=== PATIENT | female | born 1980 | race Caucasian/White ===

== ENCOUNTER 2016-09-16 06:23 | Inpatient (IN) | payer OTHER ==
[~2016-09-16] VITALS: Ht 154.9 cm; Wt 65.0 kg
[2016-09-16] VITALS (22 sets, daily range): BP systolic 90–134; BP diastolic 55–93
[2016-09-16] MEDS ORDERED: PRENTAB9 PO (06:26)
[2016-09-16] MEDS: miSOPROStol 50 MCG 1/2 TAB (S0191) PO SCH ×3 (08:16→16:26)
[2016-09-16 08:31] LABS: BASO % 0.2 % (0.0-1.0); EOS # 0.1 K/mm3 (0.0-0.50); EOS % 1.2 % (0.0-3.0); LARGE UNSTAINED CELL # 0.1 K/mm3 (0.0-0.4); LARGE UNSTAINED CELL % 1.6 % (0.0-4.0); LYMPH # 1.9 K/mm3 (1.5-4.5); LYMPH % 26.7 % (24.0-44.0); MEAN CORPUSCULAR HEMOGLOBIN 32.6 pg (27.0-33.0); MEAN CORPUSCULAR VOLUME 89.1 fl (80.0-96.0); MONO # 0.3 K/mm3 (0.0-0.8); NEUTROPHILS # 4.4 K/mm3 (1.8-7.7); NEUTROPHILS % 65.3 % (36.0-66.0); PLATELET COUNT, AUTOMATED 137 k/mm3 (150-450); WHITE BLOOD COUNT 6.8 K/mm3 (4.0-10.0)
[2016-09-16 08:40] LABS: MEAN CORPUSCULAR HGB CONC 36.6 g/dl (32.0-36.5)
[2016-09-16] MEDS ORDERED: FENTANYL 2MCG/ML ROPIVACAINE 0.2% NACL 250 ML CADD As Ordered ONE (19:44)
[2016-09-16] MEDS ORDERED: REFRIGERATOR IV KEYS XX PRN (21:30)
[2016-09-16] MEDS ORDERED: ePHEDrine SULFATE 25 MG/5 ML(5MG/ML) SYRINGE IV PRN (21:30)
[2016-09-16] MEDS ORDERED: EPIDURAL COMMENT XX SCH (21:30)
[2016-09-16] MEDS ORDERED: LACTATED RINGER'S 1000 ML IV PRN (21:30)
[2016-09-16] MEDS ORDERED: ONDANSETRON 4MG/2ML VIAL (J2405) IV PRN (21:30)
[2016-09-16] MEDS ORDERED: EPIDURAL/PCA KEYS XX PRN (21:30)
[2016-09-16] MEDS ORDERED: NALOXONE INJ 0.4 MG/1 ML VIAL (J2310) IV PRN (21:30)
[2016-09-16] MEDS ORDERED: diphenhydrAMINE INJ 50MG/ML VIAL (J1200) IV PRN (21:30)
[2016-09-16] MEDS ORDERED: FENTANYL/ROPIVACAINE/NACL CADD 250 ML EPIDURAL SCH (21:30)
[2016-09-17] VITALS (22 sets, daily range): BP systolic 82–120; BP diastolic 50–74
[2016-09-17] MEDS ORDERED: OXYTOCIN DRIP 30 UNITS in APPROPRIATE DILUENT 1 EA IV SCH (03:21)
[2016-09-17] MEDS ORDERED: MOM 30ML SUSPENSION UDC PO PRN (03:30)
[2016-09-17] MEDS ORDERED: ANUSOL HC CREAM 30GM TOP PRN (03:30)
[2016-09-17] MEDS ORDERED: DIBUCAINE 1% OINTMENT 30GM TOP PRN (03:30)
[2016-09-17] MEDS ORDERED: MEASLES,MUMPS,RUBELLA VACCINE INJ (MMR-II) (90707) SC SCH (03:30)
[2016-09-17] MEDS ORDERED: METHYLERGONOVINE MALEATE 0.2 MG TAB PO PRN (03:30)
[2016-09-17] MEDS ORDERED: RHOGAM 300 MCG (1500 IU) INJ (J2790) IM SCH (03:30)
[2016-09-17] MEDS ORDERED: DOCUSATE SODIUM 100 MG CAP PO PRN (03:30)
[2016-09-17] MEDS ORDERED: OXYTOCIN INJ 10 UNITS/ML VIAL (J2590) IV ONE (03:30)
[2016-09-17] MEDS ORDERED: IBUPROFEN 800 MG TAB PO PRN (03:30)
[2016-09-17] MEDS: ACETAMINOPHEN 500 MG TAB PO PRN ×2 (05:47→12:03)
[2016-09-17] MEDS: PRENATAL VITAMIN TAB PO SCH (07:48)
[2016-09-18 06:00] VITALS: BP 129/80
[2016-09-18 07:04] LABS: MEAN CORPUSCULAR HEMOGLOBIN 32.6 pg (27.0-33.0); MEAN CORPUSCULAR HGB CONC 36.1 g/dl (32.0-36.5); MEAN CORPUSCULAR VOLUME 90.2 fl (80.0-96.0); RED CELL DISTRIBUTION WIDTH 12.9 % (11.5-14.5); WHITE BLOOD COUNT 6.9 K/mm3 (4.0-10.0)
[2016-09-18] MEDS: PRENATAL VITAMIN TAB PO SCH (08:35)
[2016-09-18] MEDS ORDERED: ACET50TA PO (08:48)
[2016-09-18] MEDS ORDERED: IBUP-1114 PO (08:48)
[2016-09-18] MEDS ORDERED: COLA100C PO (08:48)
== END 2016-09-18 12:10 | disposition home or self-care (01) | DRG 775 ==
LOC: M LDI 06:23 → M OBS 09-17 05:14
PROVIDERS: ADMIT Obstetrics & Gynecology; ATTEND Obstetrics & Gynecology
PROC: 3E0DXGC Introduction of Other Therapeutic Substance into Mouth and Pharynx, External Approach (ICD-10-PCS; 2016-09-16)
PROC: 10E0XZZ Delivery of Products of Conception, External Approach (ICD-10-PCS; principal; 2016-09-17)
DX: O99.13 Other diseases of the blood and blood-forming organs and certain disorders involving the immune mechanism complicating the puerperium (principal); Z37.0 Single live birth; Z3A.39 39 weeks gestation of pregnancy; O09.513 Supervision of elderly primigravida, third trimester; D69.6 Thrombocytopenia, unspecified

== ENCOUNTER 2018-03-02 07:00 | Emergency (ER) | payer OTHER ==
[2018-03-02 08:11] LABS: BASO % 0.5 % (0.0-1.0); EOS % 0.5 % (0.0-3.0); HEMATOCRIT 41.3 % (36.0-47.0); HEMOGLOBIN 14.7 g/dl (12.0-15.5); IMMATURE GRANULOCYTE % 0.2 % (0-3.0); LYMPH # 0.9 10^3/uL (1.5-4.5); LYMPH % 22.7 % (24.0-44.0); MEAN CORPUSCULAR HEMOGLOBIN 32.1 pg (27.0-33.0); MEAN CORPUSCULAR HGB CONC 35.6 g/dl (32.0-36.5); MEAN CORPUSCULAR VOLUME 90.2 fl (80.0-96.0); MONO # 0.3 10^3/uL (0.0-0.8); MONO % 8.1 % (0.0-5.0); NEUTROPHILS # 2.8 10^3/uL (1.8-7.7); PLATELET COUNT, AUTOMATED 114 10^3/uL (150-450); RED BLOOD COUNT 4.58 10^6/uL (4.00-5.40); RED CELL DISTRIBUTION WIDTH 11.8 % (11.5-14.5); WHITE BLOOD COUNT 4.1 10^3/uL (4.0-10.0)
[2018-03-02] MEDS: OXAZEPAM 15 MG CAP PO (08:12)
[2018-03-02] MEDS: NS 1,000 ML IV (08:12)
[2018-03-02] MEDS: ONDANSETRON 4MG/2ML VIAL (J2405) IV (08:12)
[2018-03-02 08:31] LABS: INR 0.93; PARTIAL THROMBOPLASTIN TIME 25.3 SECONDS (25.4-37.6); PROTHROMBIN TIME 12.6 SECONDS (12.1-14.4)
[2018-03-02 08:35] LABS: ALBUMIN/GLOBULIN RATIO 1.25 (1.00-1.93); ALKALINE PHOSPHATASE 73 U/L (45-117); ALT/SGPT 26 U/L (12-78); ANION GAP 10 MEQ/L (8-16); AST/SGOT 32 U/L (7-37); BILIRUBIN,DIRECT 0.5 MG/DL (0.0-0.2); BILIRUBIN,TOTAL 2.7 MG/DL (0.2-1.0); BLOOD UREA NITROGEN 9 MG/DL (7-18); CALCIUM LEVEL 8.2 MG/DL (8.5-10.1); CARBON DIOXIDE LEVEL 25 MEQ/L (21-32); CHLORIDE LEVEL 106 MEQ/L (98-107); CK-MB VALUE MASS 1.2 NG/ML (<3.6); CPK CREATINE PHOSPHOKINASE 99 U/L (26-192); CREATININE FOR GFR 0.62 MG/DL (0.55-1.30); GLOMERULAR FILTRATION RATE > 60.0 (>60); GLUCOSE, FASTING 83 MG/DL (70-100); LIPASE 142 U/L (73-393); MB/CK RELATIVE INDEX 1.21 (< OR =4); POTASSIUM SERUM 3.8 MEQ/L (3.5-5.1); SODIUM LEVEL 141 MEQ/L (136-145); TOTAL PROTEIN 7.2 GM/DL (6.4-8.2); TROPONIN I < 0.02 NG/ML (< 0.10)
== END 2018-03-02 10:05 | disposition home or self-care (01) ==
LOC: M ED 07:00
DX: F10.239 Alcohol dependence with withdrawal, unspecified (principal); F17.210 Nicotine dependence, cigarettes, uncomplicated
CPT/HCPCS: J2405

== ENCOUNTER 2018-11-01 08:08 | Emergency (ER) | payer OTHER ==
[~2018-11-01] VITALS: Ht 154.9 cm; Wt 51.2 kg
[~2018-11-01 08:08] MED LIST: COLA100C5 PO; IBUP-1114 PO; MAPA500T2 PO; OXAZ30CA2 PO; PRENTAB9 PO; ZOFR4TAB14 PO
[2018-11-01] MEDS ORDERED: NS 1,000 ML IV ONE ×2 (09:00→11:00)
[2018-11-01 09:24] LABS: BASO % 0.5 % (0.0-1.0); EOS % 0.5 % (0.0-3.0); HEMATOCRIT 41.2 % (36.0-47.0); HEMOGLOBIN 14.9 g/dl (12.0-15.5); LYMPH # 1.1 10^3/uL (1.5-4.5); LYMPH % 25.8 % (24.0-44.0); MEAN CORPUSCULAR HEMOGLOBIN 31.7 pg (27.0-33.0); MEAN CORPUSCULAR HGB CONC 36.2 g/dl (32.0-36.5); MEAN CORPUSCULAR VOLUME 87.7 fl (80.0-96.0); MONO # 0.3 10^3/uL (0.0-0.8); MONO % 8.2 % (0.0-5.0); NEUTROPHILS # 2.7 10^3/uL (1.8-7.7); NEUTROPHILS % 64.8 % (36.0-66.0); PLATELET COUNT, AUTOMATED 102 10^3/uL (150-450); WHITE BLOOD COUNT 4.1 10^3/uL (4.0-10.0)
[2018-11-01 09:50] LABS: HCG, SERUM QUALITATIVE NEGATIVE (NEGATIVE)
[2018-11-01 09:51] LABS: ALBUMIN 3.9 GM/DL (3.2-5.2); ALT/SGPT 79 U/L (12-78); AMYLASE 32 U/L (25-115); BILIRUBIN,DIRECT 0.3 MG/DL (0.0-0.2); BILIRUBIN,TOTAL 2.4 MG/DL (0.2-1.0); BLOOD UREA NITROGEN 12 MG/DL (7-18); CALCIUM LEVEL 7.8 MG/DL (8.5-10.1); CARBON DIOXIDE LEVEL 30 MEQ/L (21-32); CHLORIDE LEVEL 104 MEQ/L (98-107); CREATININE FOR GFR 0.74 MG/DL (0.55-1.30); GLOMERULAR FILTRATION RATE > 60.0 (>60); GLUCOSE, FASTING 120 MG/DL (70-100); LIPASE 218 U/L (73-393); POTASSIUM SERUM 3.8 MEQ/L (3.5-5.1); SODIUM LEVEL 140 MEQ/L (136-145); TOTAL PROTEIN 6.1 GM/DL (6.4-8.2)
[2018-11-01] MEDS ORDERED: ONDANSETRON 4MG/2ML VIAL (J2405) IV ONE (10:00)
--- NOTE | 2018-11-01 11:27 | REP ---
RIGHT UPPER QUADRANT ULTRASOUND: Real-time sonographic evaluation of the right upper quadrant performed. Gallbladder demonstrates no evidence of intraluminal sludge or calculi, wall thickening or pericholecystic fluid. There is no intrahepatic or extrahepatic biliary dilatation, common bile duct measuring 4 mm. The liver and pancreas demonstrate no definite mass. Right kidney demonstrates no hydronephrosis with normal size 11.1 cm in length. No ascites is seen in the right upper quadrant. IMPRESSION: Negative right upper quadrant ultrasound. Electronically Signed by Gonzalez Johnson MD 11/03/2018 11:47 A
[2018-11-01] MEDS ORDERED: METOCLOPRAMIDE INJ 10MG/2ML VIAL (J2765) IV ONE (12:00)
[2018-11-01 12:41] LABS: HEPATITIS B CORE ANTIBODY IGM NEGATIVE (NEGATIVE)
[2018-11-01 12:43] LABS: HEPATITIS A ANTIBODY IGM NEGATIVE (NEGATIVE)
[2018-11-01 12:55] VITALS: BP 114/78
[2018-11-01] MEDS ORDERED: ONDA4TAB6 PO (12:58)
[2018-11-01 13:17] LABS: HEPATITIS B SURFACE ANTIGEN NEGATIVE (NEGATIVE)
== END 2018-11-01 13:16 | disposition home or self-care (01) ==
LOC: M ED 08:08
DX: R94.5 Abnormal results of liver function studies (principal); E78.5 Hyperlipidemia, unspecified; R19.7 Diarrhea, unspecified; R11.2 Nausea with vomiting, unspecified; Z72.0 Tobacco use
CPT/HCPCS: 76705; 80048; 80076; 82150; 83690; 84703; 85025; 86705; 86709; 86803; 87340; 87507; 96361; 96374; 96375; 99284; J2405; J2765